=== PATIENT | female | born 1960 | race Caucasian/White ===

== ENCOUNTER → 2016-12-06 | Day surgery (SDC) | payer OTHER ==
[~2016-12-06] VITALS: Ht 167.6 cm; Wt 64.4 kg
[~2016-12-06] MED LIST: CLINDAMYCIN HY300 MG PO; CLONAZEPAM2 M2 PO; FLEXERIL10 MG PO; PERCOCET 325 MG1 TA2 PO; TRAMADOL HCL50 M1 PO
--- NOTE | 2016-12-06 10:21 | Operative Report ---
Operative/Inv Procedure Report Surgery Date: 12/06/16 Name of Procedure: 3 column hemorrhoidectomy Pre-Operative Diagnosis: Grade 3 internal hemorrhoids External hemorrhoids Post-Operative Diagnosis: Same Estimated Blood Loss: scant Surgeon/Pole Incisor Operator: CHARLOTTE RODRIGUEZ MD Anesthesia: local monitored anesthesi Operative/Procedure Note Note: Patient brought to the operating late prone. She was sedated and placed in a jackknife position. Anus was prepped and draped. A perianal nerve block was created with a cocktail local anesthesia. Digital rectal examination was unrevealing. Rigid proctoscopy revealed circumferentially internal/external hemorrhoids. Posterior right and left columns were the largest. There was significant external hemorrhoids in the anterior position. Began anteriorly and took down the 2 large external hemorrhoids skin tags after local anesthesia was instilled. This was done sharply and a plane above the internal sphincter was developed. The internal hemorrhoidal component was dissected up to its proximal extent and suture ligated with 3-0 Vicryl. We then proceeded to perform similar hemorrhoidectomies in the posterior position on left and right columns. These both had a fairly significant internal component. Once all hemorrhoidal tissue was excised, the rectum was then reexplored. Hemostasis was adequate. I closed the internal mucosa with a running chromic gut for the posterior hemorrhoidal columns. Reapproximated the skin edges were the external tags were taken with chromic gut. Hemostasis was then reinspected and deemed adequate. The anus was then slathered in bacitracin ointment. Sterile dressing applied. Findings: Internal/external hemorrhoidal tissue CC: JOI AHUJA,MARLA
== END ==
LOC: STS 01:14
DX: K64.2 Third degree hemorrhoids (principal); Z87.891 Personal history of nicotine dependence; M54.9 Dorsalgia, unspecified; E78.00 Pure hypercholesterolemia, unspecified
CPT/HCPCS: 88304; J0131; J1100; J2250; J2405

== ENCOUNTER → 2018-07-31 | Day surgery (SDC) | payer OTHER ==
--- NOTE | 2018-07-29 18:02 | History & Physical Pre-Op ---
General Information and HPI History of Present Illness: 57-year-old female with heterogeneous cystic structure seen in the endometrium her uterus on ultrasound. 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 EENTM: Reports: no symptoms. Cardiovascular: Reports: no symptoms. Respiratory: Reports: no symptoms. GI: Reports: no symptoms. Genitourinary: Reports: no symptoms. Musculoskeletal: Reports: no symptoms. Skin: Reports: no symptoms. Neurological/Psychological: Reports: no symptoms. Hematologic/Endocrine: Reports: no symptoms. Immunologic/Allergic: Reports: no symptoms. All Other Systems: Reviewed and Negative Exam & Diagnostic Data Last 24 Hrs of Vital Signs/I&O Intake & Output 07/29 1600 07/29 0800 07/29 0000 Intake Total Output Total Balance Patient 145 lb Weight Physical Exam: HEENT: Normocephalic atraumatic Chest: Clear to auscultation bilaterally Cardiovascular: Normal S1, S2 Abdomen soft nontender Extremities no clubbing cyanosis or edema Assessment/Plan Assessment/Plan: Abnormal radiologic findings in the uterus Plan: D&C hysteroscopy As Ranked By This Provider Problem List: 1. ABN FINDINGS ON DX IMAGING OF [facility] [employer] RETR[employer]ON
[~2018-07-31] VITALS: Ht 167.6 cm; Wt 65.8 kg
--- NOTE | 2018-07-31 17:56 | Operative Report ---
Operative/Inv Procedure Report Surgery Date: 07/31/18 Name of Procedure: D&C hysteroscopy Pre-Operative Diagnosis: Abnormal findings on ultrasound of uterus Post-Operative Diagnosis: Same Estimated Blood Loss: scant Surgeon/Edm Operator: Maulik Whatley MD Anesthesia: moderate sedation Operative/Procedure Note Note: The patient was taken to the operating room placed on the OR table in the dorsal supine position. She was given adequate anesthesia and repositioned in modified dorsal lithotomy. She was prepped and draped in usual sterile fashion. A weighted speculum was inserted into the vagina with help of a [place] retractor single-tooth tenaculum was attached to the anterior lip of the cervix. The cervix was injected with 1% lidocaine with epinephrine to have cc in each quadrant. An endocervical curettage was performed revealing a minimal amount of tissue. Cervix was very short towards the vagina. An endocervical curettage performed and removed a small amount of tissue. Uterus is then sounded to 5 cm. The cervix was serially dilated to accommodate the hysteroscope hysteroscope was placed into the uterus and the endometrial canal and activated. The uterine cavity was very very small and there was one cystic appearance on the anterior wall of the endometrium. Everything else looked benign there were no polyps or fibroids. The hysteroscope was removed and the cervix was dilated further. Sharp curettage followed revealing a small amount of tissue. The isthmus were then removed from the vagina and the patient was awakened and sent to recovery in good condition. All needle, sponge, and inspected counts were correct at the end of the procedure 2.
== END ==
LOC: STS 00:47
DX: N85.8 Other specified noninflammatory disorders of uterus (principal); R93.5 Abnormal findings on diagnostic imaging of other abdominal regions, including retroperitoneum; K58.9 Irritable bowel syndrome, unspecified; F51.04 Psychophysiologic insomnia; F17.290 Nicotine dependence, other tobacco product, uncomplicated
CPT/HCPCS: 87086